=== PATIENT | female | born 1950 | race Caucasian/White ===

== ENCOUNTER 2020-12-29 06:59 | Emergency (ER) | payer OTHER ==
--- NOTE | 2020-12-29 07:31 | ER ---
Nurse's Notes [facility] Name: Laura Vitale Age: 70 yrs Sex: Female : 1950 Arrival Date: 12/29/2020 Time: 07:00 Bed 16 Private MD: Diagnosis: Localized swelling, mass and lump, right upper limb-Hematoma Presentation: 12/29 07:09 Chief complaint: Patient states: right wrist swelling and bruising that she noticed bb today around 0500. Pt denies any known injury. Pt states "I noticed it when I tried to use my hand to grab my ipad". 07:09 Coronavirus screen: At this time, the client does not indicate any symptoms associated bb with coronavirus-19. Ebola Screen: Patient negative for fever greater than or equal to 101.5 degrees Fahrenheit, and additional compatible Ebola Virus Disease symptoms. Initial Sepsis Screen: Does the patient meet any 2 criteria? No. Patient's initial sepsis screen is negative. Does the patient have a suspected source of infection? No. Patient's initial sepsis screen is negative. Risk Assessment: Do you want to hurt yourself or someone else? Patient reports no desire to harm self or others. Onset of symptoms was December 29, 2020. 07:09 Acuity: NESTOR 4 bb 07:09 Method Of Arrival: Ambulatory bb Historical: - Allergies: 07:09 No Known Allergies; bb - PMHx: 07:09 Asthma; bb - Immunization history:: Adult Immunizations unknown. - Social history:: Smoking status: Patient denies any tobacco usage or history of. - Family history:: not pertinent. - Hospitalizations: : No recent hospitalization is reported. Screenin:15 Abuse screen: Denies threats or abuse. Nutritional screening: No deficits noted. aa5 Tuberculosis screening: No symptoms or risk factors identified. Fall Risk None identified. Assessment: 07:09 General: Appears comfortable, Behavior is calm, cooperative. Pain: Complains of pain in aa5 right wrist and right hand Pain currently is 3 out of 10 on a pain scale. at worst was 6 out of 10 on a pain scale. Quality of pain is described as aching, Is continuous. Neuro: Level of Consciousness is awake, alert, obeys commands, Oriented to person, place, time, situation. Cardiovascular: Patient's skin is warm and dry. Respiratory: Airway is patent Respiratory effort is even, unlabored, Respiratory pattern is regular, symmetrical. GI: No signs and/or symptoms were reported involving the gastrointestinal system. : No signs and/or symptoms were reported regarding the genitourinary system. EENT: No signs and/or symptoms were reported regarding the EENT system. Derm: Skin is pink, warm \\T\\ dry. Bruising that is dark purple, on dorsum of right hand and dorsal aspect of right wrist. Musculoskeletal: Range of motion: intact in all extremities. 07:54 Reassessment: Patient is alert, oriented x 3, equal unlabored respirations, skin aa5 warm/dry/pink. Vital Signs: 07:09 BP 128 / 64; Pulse 76; Resp 16 S; Temp 98.5(O); Pulse Ox 98% on R/A; Weight 81.65 kg bb (R); Height 5 ft. 7 in. (170.18 cm) (R); Pain 2/10; 07:09 Body Mass Index 28.19 (81.65 kg, 170.18 cm) bb ED Course: 07:00 Patient arrived in ED. bp1 07:09 Arm band placed on Patient placed in an exam room, on a stretcher. bb 07:09 Patient has correct armband on for positive identification. Bed in low position. Call aa5 light in reach. Side rails up X 1. 07:13 Emiliano Willams MD is Attending Physician. rn 07:15 Triage completed. bb 07:19 Kenia Saleem RN is Primary Nurse. aa5 07:45 No provider procedures requiring assistance completed. Patient did not have IV access aa5 during this emergency room visit. Administered Medications: No medications were administered Outcome: 07:30 Discharge ordered by . rn 07:54 Discharged to home ambulatory. aa5 07:54 Condition: stable 07:54 Discharge instructions given to patient, Instructed on discharge instructions, follow up and referral plans. Demonstrated understanding of instructions, follow-up care. 07:56 Patient left the ED. aa5 Signatures: Kinjal Walton RN RN bb Emiliano Willams MD MD rn Calderon, Audri, RN RN aa5 Roxana Childs bp1 Corrections: (The following items were deleted from the chart) 07:19 07:14 Kinjal Walton RN is Primary Nurse. bb aa5 07:19 07:19 Primary Nurse role handed off by Kinjal Walton RN aa5 aa5
--- NOTE | 2020-12-29 07:31 | EDPHYS ---
Physician Documentation [facility] Name: Laura Vitale Age: 70 yrs Sex: Female : 1950 Arrival Date: 12/29/2020 Time: 07:00 Bed 16 Private MD: ED Physician Emiliano Willams HPI: 12/29 07:23 This 70 yrs old Female presents to ER via Ambulatory with complaints of Hand rn Swelling. 07:23 The patient or guardian reports pain, swelling. The complaints affect the right hand rn diffusely. Context: resulted from an unknown cause. Onset: The symptoms/episode began/occurred this morning. Modifying factors: The symptoms are alleviated by holding still, the symptoms are aggravated by movement, dependent position. Associated signs and symptoms: Pertinent negatives: cyanosis distally, decreased sensation distally, fever. Severity of symptoms: At their worst the symptoms were mild, in the emergency department the symptoms are unchanged. The patient has not experienced similar symptoms in the past. The patient has not recently seen a physician. Reports noticed swelling to right wrist this morning, seems like getting larger, + bruising to area with extension to back of hand, no fever, no known trauma, woke up like this. Reports doing things with hands yesterday but doesn't recall focal trauma. No weakness. No blood thinners. Does not itch, has not noticed a bite or bleeding from location. No other problem. No fever. . Historical: - Allergies: 07:09 No Known Allergies; bb - PMHx: 07:09 Asthma; bb - Immunization history:: Adult Immunizations unknown. - Social history:: Smoking status: Patient denies any tobacco usage or history of. - Family history:: not pertinent. - Hospitalizations: : No recent hospitalization is reported. ROS: 07:23 Constitutional: Negative for fever, chills, and weight loss, MS/Extremity: Negative for rn injury, + swelling and bruising Neuro: Negative for weakness, numbness, tingling Exam: 07:23 Constitutional: This is a well developed, well nourished patient who is awake, alert, rn and in no acute distress. MS/ Extremity: Pulses equal, no cyanosis. Neurovascular intact. Full, normal range of motion. + 2cm area of fluctuance over dorsal mid wrist with mild tenderness, + underlying ecchymosis that extends to dorsal hand and stops at MCPs, nothing on volar surface of hand, no puncture wounds, no lacerations or open wounds, no pain with ROM of wrist proper, only limited dorsiflexion 2/2 swelling. Cap refill < 2 sec and strong radial pulse. No extension proximal to wrist. Vital Signs: 07:09 BP 128 / 64; Pulse 76; Resp 16 S; Temp 98.5(O); Pulse Ox 98% on R/A; Weight 81.65 kg bb (R); Height 5 ft. 7 in. (170.18 cm) (R); Pain 2/10; 07:09 Body Mass Index 28.19 (81.65 kg, 170.18 cm) bb MDM: 07:13 Patient medically screened. rn 07:23 Differential diagnosis: sprain, strain, hematoma, phlebitis, spont ecchymosis. Data rn reviewed: vital signs, nurses notes, and as a result, I will discharge patient. Counseling: I had a detailed discussion with the patient and/or guardian regarding: the historical points, exam findings, and any diagnostic results supporting the discharge/admit diagnosis, the need for outpatient follow up, to return to the emergency department if symptoms worsen or persist or if there are any questions or concerns that arise at home. Special discussion: I discussed with the patient/guardian in detail that at this point there is no indication for admission to the hospital. It is understood, however, that if the symptoms persist or worsen the patient needs to return immediately for re-evaluation. ED course: No trauma or injury, no indication for imaging, most likely hematoma given rapid onset and expansion, no fever or heat to indicate infection, and good blood flow. Received moderna shot and nothing proximal to suggest blood clot. No signs of bite or envenomation. Recommend ice and elevation and given return precautions. . 07:40 ED course: Bedside u/s performed, shows small fluid collection dorsal wrist, appears rn either cyst vs hematoma. Showed images and explained everything to patient. . 12/29 07:22 Order name: Ice pack; Complete Time: 07:49 [id number] Administered Medications: No medications were administered Disposition: 12/29/20 07:30 Discharged to Home. Impression: Localized swelling, mass and lump, right upper limb - Hematoma. - Condition is Stable. - Discharge Instructions: WARREN Deutsch for Routine Care of Injuries. - Medication Reconciliation Form, Thank You Letter, Antibiotic Education, Prescription Opioid Use form. - Follow up: Private Physician; When: 2 - 3 days; Reason: Recheck today's complaints, Re-evaluation by your physician. - Problem is new. - Symptoms have improved. Signatures: Kinjal Walton RN RN bb Emiliano Willams MD MD rn Calderon, Audri, RN RN aa5 Jomar Farias RN RN [id number] Corrections: (The following items were deleted from the chart) 07:56 07:30 12/29/2020 07:30 Discharged to Home. Impression: Localized swelling, mass and aa5 lump, right upper limb - Hematoma. Condition is Stable. Forms are Medication Reconciliation Form, Thank You Letter, Antibiotic Education, Prescription Opioid Use. Follow up: Private Physician; When: 2 - 3 days; Reason: Recheck today's complaints, Re-evaluation by your physician. Problem is new. Symptoms have improved. rn
[2020-12-29 08:17] VITALS: BP 128/64; TEMP 98.5; O2SAT 98
== END 2020-12-29 07:56 | disposition home or self-care (01) ==
LOC: ER 06:59
DX: S60.221A Contusion of right hand, initial encounter (principal)
CPT/HCPCS: 99281